=== PATIENT | male | born 1990 | race Caucasian/White ===

== ENCOUNTER 2020-11-04 10:57 | Emergency (ER) | payer BC ==
[~2020-11-04] VITALS: Ht 182.9 cm; Wt 121.0 kg
[2020-11-04] MEDS ORDERED: SODIUM CHLORIDE 0.9% 1,000ML IVBOLUS ONE (11:30)
[2020-11-04] MEDS ORDERED: SODIUM CHLORIDE FLUSH 10ML SYR IVF ONE (11:30)
[2020-11-04] MEDS ORDERED: ONDANSETRON 2MG/ML, 2ML IVPush ONE (11:30)
[2020-11-04] MEDS ORDERED: MORPHINE SULFATE 4 MG/ML, 1ML ONE ×2 (11:40→12:29)
[2020-11-04] MEDS ORDERED: ONDANSETRON 2MG/ML, 2ML ONE (11:40)
[2020-11-04] MEDS: MORPHINE SULFATE 4 MG/ML, 1ML IVPush PRN ×2 (11:43→12:31)
--- NOTE | 2020-11-04 11:45 | NUR ---
PIV PLACED BY STAKING PRESS OPERATOR, LABS DRAWN AND COLLECTED BY STAKING PRESS OPERATOR. MEDS ADMIN PER OCT. IVF RUNNING. PT SITTING ON CHAIR, LEANING ON COUNTER. PT MOM AT BEDSIDE.
[2020-11-04 12:04] LABS: BASOPHILS % (AUTO) 1 % (0-1); EOSINOPHILS % (AUTO) 0 % (1-7); LYMPHOCYTES % (AUTO) 20 % (22-44); MEAN CORPUSCULAR HEMOGLOBIN 28.3 pg (27.5-34.5); MEAN CORPUSCULAR HGB CONC 34.8 g/dL (33.2-36.2); MEAN PLATELET VOLUME 8.7 fL (7.4-10.4); MONOCYTES % (AUTO) 5 % (2-9); NEUTROPHILS % (AUTO) 74 % (42-75); PLATELET COUNT 322 x10^3/uL (130-400); RED BLOOD COUNT 5.77 x10^6/uL (4.38-5.82); RED CELL DISTRIBUTION WIDTH 13.8 % (9.4-14.8)
[2020-11-04 12:08] LABS: ALBUMIN 4.9 g/dL (3.4-5.0); ANION GAP 11 mmol/L (5-15); CALCIUM 10.7 mg/dL (8.5-10.1); CHLORIDE 106 mmol/L (98-107)
[2020-11-04 12:12] LABS: ALANINE AMINOTRANSFERASE 38 U/L (12-78); ALKALINE PHOSPHATASE 78 U/L (45-117); BILIRUBIN,TOTAL 0.8 mg/dL (0.2-1.0); CREATININE 1.25 mg/dL (0.7-1.3)
[2020-11-04 12:14] LABS: MD NO
--- NOTE | 2020-11-04 12:25 | NUR ---
PT STILL LEANING ON EDGE OF COUNTER, C/O PAIN.
[2020-11-04] MEDS ORDERED: DROPERIDOL 2.5MG/ML, 2ML IVPush ONE (12:30)
--- NOTE | 2020-11-04 12:32 | NUR ---
SECOND DOSE PAIN MEDS ADMIN.
[2020-11-04] MEDS ORDERED: HALOPERIDOL 5 MG/ML IV ONE (13:00)
[2020-11-04] MEDS ORDERED: HALOPERIDOL 5 MG/ML ONE (13:45)
--- NOTE | 2020-11-04 13:52 | NUR ---
ERPA PREVIOUSLY STATED TO HOLD HALDOL. ERMD ASKED FOR THE HALDOL TO BE NOW GIVEN. HALDOL ORDERED PER OCT. PT CONNECTED TO CARDIAC MONITORING. PT WAS LAYING ON GURNEY, LOOKING MORE RELAXED THAN PREVIOUSLY. PT STATES IS STILL UNCOMFORTABLE.
[2020-11-04] MEDS ORDERED: KETOROLAC 30 MG/1 ML IM ONE (14:00)
[2020-11-04] MEDS ORDERED: DICYCLOMINE 10 MG/ML, 2ML IM ONE (14:00)
--- NOTE | 2020-11-04 14:14 | NUR ---
US AT BEDSIDE.
[2020-11-04] MEDS ORDERED: DICYCLOMINE 10 MG/ML, 2ML ONE (14:35)
--- NOTE | 2020-11-04 14:41 | NUR ---
MEDS ADMIN PER MAR. PT RESTING COMFORTABLY ON GURNEY. NADN. PT PLACED ON OXYGEN FOR SAFETY.
--- NOTE | 2020-11-04 14:43 | NUR ---
ALL RESULTS ARE BACK AT THIS TIME. CHART UP FOR RECHECK.
[2020-11-04] MEDS ORDERED: MAALOX/HYOSCYAMINE/LIDOCAINE 45 ML BTL ONE (15:44)
--- NOTE | 2020-11-04 15:55 | NUR ---
PT AMBULATED TO RESTROOM WITH STEADY GAIT TO PROVIDE URINE SAMPLE. UA COLLECTED AND SENT TO LAB.
[2020-11-04] MEDS ORDERED: MAALOX/HYOSCYAMINE/LIDOCAINE 45 ML BTL PO ONE (16:00)
[2020-11-04 16:10] LABS: MICROSCOPIC INDICATED
[2020-11-04 16:29] VITALS: BP 131/80
--- NOTE | 2020-11-04 16:32 | NUR ---
ALL RESULTS ARE BACK AT THIS TIME. CHART UP FOR RECHECK.
--- NOTE | 2020-11-04 16:32 | NUR ---
PT STATES PAIN IS BETTER AFTER GI COCKTAIL.
--- NOTE | 2020-11-04 16:33 | NUR ---
MD AT BEDSIDE TO UPDATE PT ON POC.
== END 2020-11-04 17:08 | disposition home or self-care (01) ==
LOC: ED 12:12
DX: R10.13 Epigastric pain (principal); R11.2 Nausea with vomiting, unspecified; R10.11 Right upper quadrant pain
CPT/HCPCS: 36415; 76700; 80053; 81001; 83690; 85025; 93005; 96361; 96372; 96374; 96375; 96376; 99285; J0500; J1630; J1790; J2270; J2405; J7030